=== PATIENT | male | born 1980 | race Caucasian/White ===

== ENCOUNTER 2017-04-18 11:08 | Inpatient (IN) | payer OTHER, MEDICAID ==
[~2017-04-18] VITALS: Ht 175.3 cm; Wt 61.8 kg
[2017-04-18 11:55] LABS: Basophils # (auto) 0 uL; Basophils % (auto) 0.7 % (0.0-2.0); Eosinophils # (auto) 0 uL; Eosinophils % (auto) 0.3 % (0.0-7.0); Hemoglobin 16.4 g/dL (13.5-17.5); Lymphocytes # (auto) 0.6 uL; Lymphocytes % (auto) 12.3 % (10.0-50.0); Mean Corpuscular Hemoglobin 31.1 pg (28.0-32.0); Mean Corpuscular Hgb Conc. 34.2 g/dL (32.0-36.0); Mean Platelet Volume 8.6 fL (6.9-10.8); Monocytes # (auto) 0.5 uL; Monocytes % (auto) 10.2 % (0.0-12.0); Neutrophils # (auto) 3.6 uL; Neutrophils % (auto) 76.5 % (37.0-80.0); Nucleated Red Blood Cells % 0.1 %; Platelet Count (auto) 236 10^3/uL (140-450); Red Cell Distribution Width 13.6 % (11.8-14.3); White Blood Cell 4.7 10^3/uL (4.4-10.8)
[2017-04-18 12:02] LABS: Urine Bilirubin Negative (Negative); Urine Blood Negative /uL (Negative); Urine Color Yellow (Yellow); Urine Glucose 2+ mg/dL (Normal); Urine Ketone 3+ (Negative); Urine Mucus FEW (None Seen); Urine Nitrite Negative (Negative); Urine RBC 2 /hpf (0 - 3); Urine Squamous Epithelial Cell FEW /hpf (<5); Urine Urobilinogen Normal (Negative)
[2017-04-18 12:19] LABS: Albumin 4.1 g/dL (3.4-5.0); BUN/Creatinine Ratio 16.2; Bilirubin, Total 0.8 mg/dL (0.2-1.0); Calcium 9.4 mg/dL (8.5-10.1); Potassium 4.1 mmol/L (3.5-5.1); Total Protein 8.1 g/dL (6.4-8.2)
[2017-04-18] MEDS ORDERED: ONDANSETRON HCL 4 MG/2 ML VIAL ONE (16:01)
[2017-04-18] MEDS ORDERED: PROMETHAZINE HCL 25 MG/ML 1ML ONE (16:31)
[2017-04-18] MEDS ORDERED: PANTOPRAZOLE 40 MG/10 ML VIAL IV ONE ×2 (16:31→16:45)
[2017-04-18] MEDS ORDERED: PROMETHAZINE HCL 25 MG/ML 1ML IV ONE ×2 (16:45→19:45)
[2017-04-18] MEDS ORDERED: ONDANSETRON HCL 4 MG/2 ML VIAL IV ONE (16:45)
[2017-04-18] MEDS ORDERED: SODIUM CHLORIDE 0.9% 2,000 ML IV ONE (17:00)
[2017-04-18 17:11] LABS: Magnesium 2.2 mg/dL (1.6-2.6)
[2017-04-18 17:39] LABS: INR 0.99 (0.9-1.15); Partial Thromboplastin Time 22.9 sec (22.64-33.71); Prothrombin Time 10.8 sec (9.37-12.3)
[2017-04-18] MEDS ORDERED: D5W/SOD CHLO 0.9% 1,000 ML IV ONE (19:45)
[2017-04-18 20:34] LABS: BUN/Creatinine Ratio 16.2; Calcium 8.2 mg/dL (8.5-10.1); Potassium 4.3 mmol/L (3.5-5.1)
[2017-04-18] MEDS ORDERED: D5W/SOD CHLO 0.9% 1,000 ML IV SCH (21:30)
[2017-04-18] MEDS ORDERED: DEXTROSE (50%) 50ML SYRG IV PRN (21:30)
[2017-04-18 21:45] VITALS: BP_SYST 126; BP_SYST 128; BP_DIAS 76
[2017-04-18] MEDS ORDERED: INSULIN DETEMIR(LEVEMIR) 1unit/0.01ml Soln (100units/ml) SC ONE (22:00)
[2017-04-18] MEDS: SODIUM CHLORIDE 0.9% 1,000 ML IV SCH (23:15)
[2017-04-18] MEDS: InsuLIN REG 1unit/0.01ml Soln (100units/ml) SC SCH (23:15)
[2017-04-18] MEDS: ACCU-CHEK COMFORT CURVE STRIP VI SCH (23:15)
[2017-04-18] MEDS: MORPHINE SULF INJ 2 MG/ML SYRINGE 1ML IV PRN (23:35)
[2017-04-18] MEDS: PROMETHAZINE HCL 25 MG/ML 1ML IV PRN (23:35)
[2017-04-19 05:00] VITALS: BP 123/63
[2017-04-19] MEDS ORDERED: INSLISPI SC (05:10)
[2017-04-19] MEDS: InsuLIN REG 1unit/0.01ml Soln (100units/ml) SC SCH ×3 (06:00→18:00)
[2017-04-19 06:10] LABS: Basophils # (auto) 0 uL; Basophils % (auto) 0.6 % (0.0-2.0); Eosinophils # (auto) 0 uL; Hematocrit 39.3 % (41.0-53.0); Hemoglobin 13.3 g/dL (13.5-17.5); Lymphocytes # (auto) 1.1 uL; Lymphocytes % (auto) 21.9 % (10.0-50.0); Mean Corpuscular Hemoglobin 30.9 pg (28.0-32.0); Mean Corpuscular Hgb Conc. 33.9 g/dL (32.0-36.0); Mean Corpuscular Volume 91.2 fL (80.0-100.0); Mean Platelet Volume 8.4 fL (6.9-10.8); Monocytes # (auto) 0.7 uL; Neutrophils # (auto) 3.2 uL; Neutrophils % (auto) 64.5 % (37.0-80.0); Nucleated Red Blood Cells % 0.1 %; Platelet Count (auto) 189 10^3/uL (140-450); Red Cell Distribution Width 13.6 % (11.8-14.3)
[2017-04-19] MEDS: ACCU-CHEK COMFORT CURVE STRIP VI SCH ×4 (06:24→23:05)
[2017-04-19] MEDS: INSULIN DETEMIR(LEVEMIR) 1unit/0.01ml Soln (100units/ml) SC SCH (06:25)
[2017-04-19 06:34] LABS: Potassium 4.1 mmol/L (3.5-5.1)
[2017-04-19 06:41] LABS: Albumin 3.1 g/dL (3.4-5.0); BUN/Creatinine Ratio 16.8; Calcium 8.2 mg/dL (8.5-10.1)
[2017-04-19 06:45] LABS: Bilirubin, Total 0.5 mg/dL (0.2-1.0); Total Protein 5.9 g/dL (6.4-8.2)
[2017-04-19 09:21] VITALS: BP 132/74
[2017-04-19] MEDS: MORPHINE SULF INJ 2 MG/ML SYRINGE 1ML IV PRN ×3 (10:57→23:04)
[2017-04-19] MEDS: SODIUM CHLORIDE 0.9% 1,000 ML IV SCH ×2 (11:25→23:26)
[2017-04-19] MEDS ORDERED: PANTOPRAZOLE 40 MG TAB PO ONE (12:30)
[2017-04-19] MEDS: PROMETHAZINE HCL 25 MG/ML 1ML IV PRN ×3 (12:52→23:26)
[2017-04-19 16:58] VITALS: BP 129/75
[2017-04-19 20:00] VITALS: BP 127/69
[2017-04-19 22:00] VITALS: BP 127/69
[2017-04-19] MEDS ORDERED: INSULIN DETEMIR(LEVEMIR) 1unit/0.01ml Soln (100units/ml) SC SCH (22:00)
[2017-04-19] MEDS: PANTOPRAZOLE 40 MG TAB PO SCH (23:04)
[2017-04-20 05:00] VITALS: BP 129/70
[2017-04-20] MEDS: InsuLIN REG 1unit/0.01ml Soln (100units/ml) SC SCH ×4 (06:00→18:00)
[2017-04-20] MEDS: ACCU-CHEK COMFORT CURVE STRIP VI SCH ×3 (06:10→18:00)
[2017-04-20 06:54] LABS: Basophils # (auto) 0 uL; Basophils % (auto) 0.6 % (0.0-2.0); Eosinophils # (auto) 0 uL; Eosinophils % (auto) 0.3 % (0.0-7.0); Hematocrit 39.4 % (41.0-53.0); Hemoglobin 13.9 g/dL (13.5-17.5); Lymphocytes # (auto) 1.2 uL; Lymphocytes % (auto) 26.7 % (10.0-50.0); Mean Corpuscular Hemoglobin 31.8 pg (28.0-32.0); Mean Corpuscular Hgb Conc. 35.2 g/dL (32.0-36.0); Mean Corpuscular Volume 90.3 fL (80.0-100.0); Mean Platelet Volume 8.2 fL (6.9-10.8); Monocytes # (auto) 0.5 uL; Monocytes % (auto) 11.7 % (0.0-12.0); Neutrophils # (auto) 2.8 uL; Neutrophils % (auto) 60.7 % (37.0-80.0); Nucleated Red Blood Cells % 0.1 %; Platelet Count (auto) 170 10^3/uL (140-450); Red Cell Distribution Width 13.3 % (11.8-14.3); White Blood Cell 4.6 10^3/uL (4.4-10.8)
[2017-04-20] MEDS: INSULIN DETEMIR(LEVEMIR) 1unit/0.01ml Soln (100units/ml) SC SCH (07:04)
[2017-04-20] MEDS: MORPHINE SULF INJ 2 MG/ML SYRINGE 1ML IV PRN ×3 (07:05→16:31)
[2017-04-20 07:12] LABS: BUN/Creatinine Ratio 12.5; Calcium 8.1 mg/dL (8.5-10.1); Potassium 3.6 mmol/L (3.5-5.1)
[2017-04-20] MEDS ORDERED: LIDOCAINE VISCOUS 2% 15ML UD ONE (08:08)
[2017-04-20] MEDS ORDERED: SODIUM CHLORIDE LOCK 10 ML ONE (08:08)
[2017-04-20] MEDS ORDERED: diphenhdrAMINE HCL 50 MG/1 ML VL ONE (08:09)
[2017-04-20 09:26] VITALS: BP 126/79
[2017-04-20] MEDS: PANTOPRAZOLE 40 MG TAB PO SCH (10:00)
[2017-04-20] MEDS: PROMETHAZINE HCL 25 MG/ML 1ML IV PRN ×2 (11:09→16:31)
[2017-04-20] MEDS: MIDAZOLAM HCL 5 MG/ML-1ML VIAL ONE ×2 (12:18→12:23)
[2017-04-20] MEDS: fentaNYL CITRATE 100 MCG/2 ML VL ONE ×2 (12:18→12:23)
[2017-04-20 13:00] VITALS: BP 139/72
[2017-04-20] MEDS ORDERED: SUC1LQ PO (13:00)
[2017-04-20] MEDS ORDERED: PANT40T PO (13:00)
[2017-04-20] MEDS ORDERED: GASTROGRAFIN 120 ML SOL ONE (14:39)
[2017-04-20] MEDS ORDERED: EZ-GAS II GRANULES (RADIOLOGY USE) PO ONE (14:40)
[2017-04-20] MEDS: SODIUM CHLORIDE 0.9% 1,000 ML IV SCH (15:15)
[2017-04-20 16:40] VITALS: BP 139/72
[2017-04-20] MEDS ORDERED: SUCRALFATE 1 GM/10 ML ORAL SUSP PO SCH (17:00)
[2017-04-20 17:43] VITALS: BP 129/77
[2017-04-20] MEDS ORDERED: METOCLOPRAMIDE HCL 5MG/ml INJ 2ml VIAL IV SCH (18:00)
[2017-04-21] MEDS ORDERED: PANT40T PO (15:40)
[2017-04-21] MEDS ORDERED: SUC1LQ PO (15:40)
== END 2017-04-20 19:30 | disposition home or self-care (01) | DRG 391 ==
LOC: ER 11:08 → TELE 11:09 → TELE-WESTW 21:36
PROVIDERS: ADMIT Nurse Practitioner Acute Care; ATTEND Hospitalist
PROC: 0DJ08ZZ Inspection of Upper Intestinal Tract, Via Natural or Artificial Opening Endoscopic (ICD-10-PCS; principal; 2017-04-20 12:18)
DX: K29.00 Acute gastritis without bleeding (principal); N17.0 Acute kidney failure with tubular necrosis; E44.1 Mild protein-calorie malnutrition; N20.0 Calculus of kidney; E11.9 Type 2 diabetes mellitus without complications; Z53.8 Procedure and treatment not carried out for other reasons; Z79.4 Long term (current) use of insulin; Z82.49 Family history of ischemic heart disease and other diseases of the circulatory system; Z68.20 Body mass index [BMI] 20.0-20.9, adult
CPT/HCPCS: 36415; 43235; 71010; 74176; 74245; 76705; 78226; 80048; 80053; 81001; 82150; 82962; 83036; 83690; 83735; 85025; 85610; 85730; 94761; 96361; 96374; 96375; C9113; J1815; J2250; J2405; J7042